=== PATIENT | male | born 1990 | race Two or more races ===

== ENCOUNTER 2022-01-17 23:43 | Emergency (ER) | payer OTHER ==
[~2022-01-17] VITALS: Ht 172.7 cm; Wt 72.6 kg
--- NOTE | 2022-01-18 00:06 | NUR ---
Patient discharged to [facility] custody. Written and verbal after care instructions given. Patient verbalizes understanding of instruction.
[2022-01-18 00:07] VITALS: BP 132/88
== END 2022-01-18 00:07 ==
LOC: ER 23:53
DX: Z02.89 Encounter for other administrative examinations (principal)